=== PATIENT | male | born 1955 | race Caucasian/White ===

== ENCOUNTER 2016-03-20 01:54 | Inpatient (IN) ==
[2016-03-20] MEDS ORDERED: BUMETANIDE 1 MG/4 ML VIAL IV STA (02:16)
--- NOTE | 2016-03-20 02:29 | EKG Report ---
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
--- NOTE | 2016-03-20 02:37 | Emergency Department Note ---
Manuel Clemente Gwan, am scribing for, and in the presence of, Frank Nava MD 02:28. Elijah Clemente Robert M, MD, personally performed the services described in this documentation, ascribed by Shelley Jackson in my presence, and it is both accurate and complete . Arrival - Arrival Chief Complaint: Shortness of Breath Stated Complaint: sob tightness in chest ED Nursing Triage Note: C/O SOB when laying down or with exertion. reports that the last time this happened he was diagnosed with CHF. Mode of Arrival: Wheelchair Limitations: No Limitations Source: Patient, Significant other (), Old Records Reviewed, RN Notes Reviewed Time Seen by Provider: 03/20/16 02:06 - History of Present Illness HPI Narrative: Pt is a 61 y/o male who presents to the ED with a c/o SOB and weakness with an onset today. Pt has a PMHx of HTN, [place], CHF, CAD, stents (1997, 2007,2014), NIDDM , dyslipidemia, obstructive sleep apnea and GERD. noted that pt has had this happen before as a result he was dx wit CHF. Patient confirmed that his discomfort is worsened when he lays flat and with exertion and that he is on prescription water pills. His associated sxs have been edema in bilateral lower extremities and facial edema. Patient is followed by Dr. Rooney and Dr. Mcgee. He denies any other pain or injuries. No other problems/complaints reported in ED. F. Onset (ago): hour(s) Consistency: constant Severity: moderate Allergies/Adverse Reactions: Allergies Allergy/AdvReac Type Severity Reaction Status Date / Time No Known Allergies Allergy Verified 08/17/14 16:09 Home Medications: Home Medications Medication Instructions Recorded Confirmed Type Atorvastatin [Lipitor] 20 mg PO BEDTIME 06/27/14 03/20/16 History Dapagliflozin Propanediol [Farxiga] 1 mg PO DAILY 06/27/14 03/20/16 History Fenofibric Acid 135 mg PO DAILY 06/27/14 03/20/16 History Furosemide Tab [Lasix Tab] 40 mg PO DAILY 06/27/14 03/20/16 History Magnesium Chloride [Mag Delay] 64 mg PO BEDTIME 06/27/14 03/20/16 History Morphine Sulfate [Morphine Sulfate 30 mg PO RT Q12H 06/27/14 03/20/16 History ER] Multivit-Min/FA/Lycopene/Lut 1 each PO DAILY 06/27/14 03/20/16 History [Centrum Silver Tablet] Niacin [Niacin ER] 2,000 mg PO BEDTIME 06/27/14 03/20/16 History Nitroglycerin [place] 400 mcg IH DAILY PRN 06/27/14 03/20/16 History Omeprazole 20 mg PO DAILY 06/27/14 03/20/16 History Potassium Gluconate 595 mg PO DAILY 06/27/14 03/20/16 History Saxagliptin HCl/Metformin HCl 5 mg PO DAILY 06/27/14 03/20/16 History [Kombiglyze Xr 5-1,000 mg Tab] Tizanidine HCl 1 mg PO Q8HR PRN 06/27/14 03/20/16 History Valsartan/Hctz 160-12.5 [Diovan 160 mg PO DAILY 06/27/14 03/20/16 History Hct 160-12.5] Vitamin E 400 unit PO BEDTIME 06/27/14 03/20/16 History glipiZIDE [Glipizide] 5 mg PO DAILY 06/27/14 03/20/16 History Brilinta 90 mg PO BID 07/07/14 03/20/16 History Cilostazol [Pletal] 100 mg PO BID 08/16/14 03/20/16 History Aspirin [Ecotrin] 81 mg PO BEDTIME 08/18/14 03/20/16 History Azelastine Nasal 137 Mcg/[place] 1 spray BOTH NARES BID 07/02/15 03/20/16 History [Astelin Nasal [place]] Baclofen 10 mg PO TID 07/02/15 03/20/16 History Dapagliflozin Propanediol [Farxiga] 5 mg PO DAILY 07/02/15 03/20/16 History Icosapent Ethyl [Vascepa] 2 gm PO BID 07/02/15 03/20/16 History Metoprolol Succinate Xl [Toprol Xl] 50 mg PO DAILY 07/02/15 03/20/16 History Oxycodone HCl/Acetaminophen 1 each PO QID PRN 07/02/15 03/20/16 History [Percocet 10-325 mg Tablet] Pseudoephedrine [Sudafed] 30 mg PO Q4-6H PRN 07/02/15 03/20/16 History Review of System - Review of System 12 point system: reviewed and no additional remarkable complaints except as stated - Review of System Constitutional: Present: as per HPI, weakness Respiratory: Present: as per HPI, other (sob) Medical,Surgical,& Family Hx - Medical History Cardio: History of: CHF, CAD, Hypertension, [place] ([place] x2), PVD, Cardiovascular Problems (Reports 2007 was last stent beginning in 1997; STINTS PLACED 08/16/14) No history of: Aneurysm, Cardiac Dysrhythmia Neurology: No history of: Brain Aneurysm, Cerebral Hemorrhage, Cerebrovascular Accident , Cerebral Palsy, Dementia, Migraine, Multiple Sclerosis, Parkinson's Disease, Peripheral Neuropathy, Seizures, TIA, Vertigo, Neurologocal Cancer Endocrine: History of: Diabetes Mellitus (NIDDM) (type 2. controlled with oral meds), Dyslipidemia Respiratory: History of: Obstructive Sleep Apnea Gastrointestinal: History of: GERD Musculoskeletal: History of: Back/Neck Problems, Herniated Disk (cysts on a disc and L4 and L5 pending surgery), Musculoskeletal Problems (Carpal tunnel surgery) Hematology: No history of: Blood Transfusion Reaction Other: History of: Miscellaneous Medical Problems (history of cyst removed from back of neck in doctor's office) No history of: Cancer, MRSA - Surgical History Cardiac Surgeries: Sugical HX of: Cardiac Catheterization Thoracic Surgeries: Patient denies;: Organ Transplant, Lobectomy Neurologic Surgeries: Patient denies: Brain Aneurysm, Cerebral Hemorrhage, Neurologic Surgery HEENT Surgeries: Patient denies: Eye Surgery, Thyroid Surgery, Tonsilectomy & Adenoidectomy Abdominal Surgeries: Patient denies: Abdominal Surgery, Appendectomy, Cholecystectomy, Colonoscopy , Gastric Bypass Surgery, EGD, Hernia Repair - Family History Family History: Reports;: Family Cancer (FATHER AND GRANDMOTHER), Family Diabetes, Family Heart Disease, Family Hypertension, Family Stroke - Social History Smoking Status: Former smoker Frequency of Alcohol Use: None Type of Drug Use: None Exam Vital Signs: Vital Signs Temperature 97.8 F 03/20/16 02:00 Pulse Rate 70 03/20/16 03:37 Respiratory Rate 20 03/20/16 03:37 Blood Pressure 128/66 03/20/16 03:37 O2 Sat by Pulse Oximetry 98 03/20/16 03:37 - General General appearance: alert - Head Head exam: Present: atraumatic, normocephalic - Eye Eye exam: Present: normal appearance, PERRL, EOMI - ENT ENT exam: Present: normal oropharynx, mucous membranes moist, TM's normal bilaterally, normal external ear exam - Neck Neck exam: Present: full ROM, trachea midline. Absent: tenderness, meningismus , lymphadenopathy, thyromegaly - Chest Chest inspection: Present: symmetric chest wall rise. Absent: tenderness - Respiratory Respiratory exam: Present: rhonchi (bilateral rhonchi) - Abdominal Exam Abdominal exam: Present: soft, normal bowel sounds. Absent: distention, tenderness, guarding - Extremities Exam Extremities exam: Present: other (edema bilateral lower extremities) - Back Exam Back exam: Present: full ROM. Absent: tenderness - Neurological Exam Neurological exam: Present: alert, oriented X3, CN II-XII intact. Absent: motor sensory deficit - Psychiatric Psychiatric exam: Present: normal affect, normal mood - Skin Skin exam: Present: warm, dry, intact, normal color Course - Consultations Consultation #1: Dr. Zeynep Horner is gimp buttonhole machine operator for Dr. Vinicio Rooney. Someone to admit the patient to Dr. Rooney. Dr. Horner is aware. Time: 04:22 Results - Labs CBC & BMP: 03/20/16 02:28 03/20/16 02:28 Lab Results: I have reviewed the patients labs Labs: Lab Results WBC 5.9 T/CUMM (4-12) 03/20/16 02:28 RBC 4.71 MC/CUMM (3.8-5.5) 03/20/16 02:28 Hgb 13.6 GM/DL (14.0-18.0) L 03/20/16 02:28 Hct 41.2 VOL% (42.0-52.0) L 03/20/16 02:28 MCV 87.5 FL (87-102) 03/20/16 02:28 MCH 29 PG (27-34) 03/20/16 02:28 MCHC 33.0 GM/DL (32-36) 03/20/16 02:28 RDW 13.3 % (9.3-17.3) 03/20/16 02:28 Plt Count 283 T/CUMM (130-400) 03/20/16 02:28 MPV 9.1 FL (9.6-12.0) L 03/20/16 02:28 Neut % (Auto) 42.7 % (38.7-73.9) 03/20/16 02:28 Lymph % (Auto) 41.4 % (21.2-54.2) 03/20/16 02:28 [place] % (Auto) 10.4 % (1.7-12.7) 03/20/16 02:28 Eos % (Auto) 3.6 % (0.00-10.9) 03/20/16 02:28 Baso % (Auto) 1.4 % (0.0-0.8) H 03/20/16 02:28 Neut # (Auto) 2.5 10*3/uL (1.4-7.4) 03/20/16 02:28 Lymph # (Auto) 2.4 10*3/uL (1.4-4.0) 03/20/16 02:28 Stevens # (Auto) 0.6 10*3/uL (0.11-0.8) 03/20/16 02:28 Eos # (Auto) 0.2 10*3/uL (0.0-0.87) 03/20/16 02:28 Baso # (Auto) 0.1 10*3/uL (0.0-0.2) 03/20/16 02:28 Immature Gran % 0.5 % 03/20/16 02:28 Nucleated RBC % 0.0 /100WBC 03/20/16 02:28 Immature Gran # 0.03 # 03/20/16 02:28 Nucleated RBCs # 0.00 10*3/uL 03/20/16 02:28 INR 1.0 03/20/16 02:28 PT Patient/Control Mix 10.3 SECS 03/20/16 02:28 Sodium 141 MMOL/L (136-145) 03/20/16 02:28 Potassium 3.7 MMOL/L (3.5-5.1) 03/20/16 02:28 Chloride 104 MMOL/L (98-107) 03/20/16 02:28 Carbon Dioxide 27 MMOL/L (21-32) 03/20/16 02:28 Anion Gap 13.7 MMOL/L (5.0-15.0) 03/20/16 02:28 BUN 20 MG/DL (7-18) H 03/20/16 02:28 Creatinine 1.20 MG/DL (0.70-1.30) 03/20/16 02:28 GFR Calculation 87 ML/MIN 03/20/16 02:28 BUN/Creatinine Ratio 16.00 RATIO (6.00-20.00) 03/20/16 02:28 Glucose 202 MG/DL (74-106) H 03/20/16 02:28 Calculated Osmolality 289.3 MOS/KG (273-304) 03/20/16 02:28 Calcium 9.1 MG/DL (8.5-10.1) 03/20/16 02:28 Magnesium 2.1 MG/DL (1.8-2.4) 03/20/16 02:28 Total Bilirubin < 0.39 MG/DL (0.2-1.0) 03/20/16 02:28 AST 20 U/L (0-37) 03/20/16 02:28 ALT 40 U/L (16-61) 03/20/16 02:28 Alkaline Phosphatase 49 U/L (45-117) 03/20/16 02:28 Troponin I 0.062 NG/ML (0.00-0.045) H 03/20/16 02:28 B-Natriuretic Peptide 4 PG/ML (2-100) 03/20/16 02:28 Total Protein 7.0 G/DL (6.4-8.3) 03/20/16 02:28 Albumin 3.5 G/DL (3.4-5.0) 03/20/16 02:28 Globulin 3.5 G/DL (2.3-3.5) 03/20/16 02:28 Albumin/Globulin Ratio 1.0 RATIO (1.1-2.2) L 03/20/16 02:28 - Diagnostic Findings Procedure: Chest x-ray: image reviewed by me (right lower lobe interstitial prominence) Disposition Clinical Impression: Acute dyspnea, CAD (coronary artery disease), History of placement of stent in LAD coronary artery, Hypertension, Type 2 diabetes mellitus Case discussed with: patient, patient's family Disposition: Still a Patient Condition: Stable Time of Disposition: 04:21
[2016-03-20] MEDS ORDERED: BUMETANIDE 1 MG/4 ML VIAL ONE ×2 (02:38)
[2016-03-20 02:43] LABS: Basophils # 0.1 10*3/uL (0.0-0.2); Basophils % 1.4 % (0.0-0.8); Eosinophils # 0.2 10*3/uL (0.0-0.87); Eosinophils % 3.6 % (0.00-10.9); Hematocrit 41.2 VOL% (42.0-52.0); Hemoglobin 13.6 GM/DL (14.0-18.0); Immature Granulocytes % 0.5 %; Immature Granulocytes Absolute 0.03 #; Lymphocytes # 2.4 10*3/uL (1.4-4.0); Lymphocytes % 41.4 % (21.2-54.2); Mean Corpuscular Hemoglobin 29 PG (27-34); Mean Corpuscular Volume 87.5 FL (87-102); Mean Platelet Volume 9.1 FL (9.6-12.0); Monocytes # 0.6 10*3/uL (0.11-0.8); Monocytes % 10.4 % (1.7-12.7); Neutrophils # 2.5 10*3/uL (1.4-7.4); Neutrophils % 42.7 % (38.7-73.9); Platelet Count 283 T/CUMM (130-400); Red Blood Count 4.71 MC/CUMM (3.8-5.5); Red Cell Distribution Width 13.3 % (9.3-17.3); White Blood Count 5.9 T/CUMM (4-12)
[2016-03-20 02:52] LABS: PT Patient Result 10.3 SECS
[2016-03-20 03:20] LABS: Alanine Aminotransferase 40 U/L (16-61); Albumin 3.5 G/DL (3.4-5.0); Alkaline Phosphatase 49 U/L (45-117); Aspartate Amino Transferase 20 U/L (0-37); Bilirubin,Total < 0.39 MG/DL (0.2-1.0); Blood Urea Nitrogen 20 MG/DL (7-18); Calcium 9.1 MG/DL (8.5-10.1); Glucose 202 MG/DL (74-106); Magnesium 2.1 MG/DL (1.8-2.4); Osmolality,Calculated 289.3 MOS/KG (273-304); Potassium 3.7 MMOL/L (3.5-5.1); Sodium 141 MMOL/L (136-145)
[2016-03-20 03:41] LABS: Troponin I Only 0.062 NG/ML (0.00-0.045)
[2016-03-20] MEDS ORDERED: ALBUTEROL 2.5 MG/3 ML NEB RESP TX STA (03:52)
[2016-03-20] MEDS ORDERED: KETOROLAC 30 MG/1 ML VIAL IV PRN (04:22)
[2016-03-20] MEDS ORDERED: ACETAMINOPHEN 325 MG TABLET PO PRN (04:22)
[2016-03-20] MEDS ORDERED: BISACODYL 5 MG TABLET PO PRN (04:22)
[2016-03-20] MEDS ORDERED: traMADol 50 MG TABLET PO PRN (04:22)
[2016-03-20] MEDS ORDERED: HYDROmorphone 2 MG/1 ML VIAL IV PRN (04:22)
[2016-03-20] MEDS ORDERED: ONDANSETRON 4 MG/2 ML VIAL IV PRN (04:22)
[2016-03-20] MEDS ORDERED: IBUPROFEN 600 MG TABLET PO PRN (04:22)
--- NOTE | 2016-03-20 07:03 | XRay Report ---
XR chest 1V portable Indication: SOB Comparison: Chest x-ray dated August 17, 2014 Technique: Single frontal view of the chest Findings: Heart size appears within normal limits. There is coarse bilateral interstitial lung markings suggesting interstitial pulmonary edema or infectious/inflammatory process. Osseous and surrounding soft tissue structures appear grossly unchanged. IMPRESSION: As above. PROCEDURE INTERPRETED AT [facility] Final Report Signed by: Dr Johan Lee
[2016-03-20] MEDS: cefTRIAXone 1,000 MG in SODIUM CHLORIDE 0.9% 100 ML IV SCH (07:05)
[2016-03-20] MEDS ORDERED: NITROGLYCERIN 400 MCG IH PRN (07:19)
[2016-03-20] MEDS ORDERED: oxyCODONE/ACETAMINOPHEN 5-325 MG TABLET PO PRN ×2 (07:19→07:26)
[2016-03-20] MEDS ORDERED: GLUCAGON 1 MG VIAL IM PRN ×2 (07:24→07:28)
[2016-03-20] MEDS ORDERED: DEXTROSE 50% 25 GM/50 ML VIAL IV PRN ×2 (07:24→07:28)
[2016-03-20] MEDS: INSULIN LISPRO 100 UNIT/ML SUBCUT SCH ×4 (08:36→21:46)
[2016-03-20] MEDS ORDERED: NON-FORMULARY MEDICATION (Dapagliflozin Propanediol [Farxiga] 10 MG) PO SCH (09:00)
[2016-03-20] MEDS: FUROSEMIDE 40 MG TABLET PO SCH (09:26)
[2016-03-20] MEDS: glipiZIDE 5 MG TABLET PO SCH (09:26)
[2016-03-20] MEDS: FENOFIBRATE 145 MG TABLET PO SCH (09:26)
[2016-03-20] MEDS: POTASSIUM GLUCONATE 500 MG TABLET PO SCH (09:26)
[2016-03-20] MEDS: MULTIVITAMIN (CENTRUM) TABLET PO SCH (09:26)
[2016-03-20] MEDS: VALSARTAN/HCTZ 160-12.5 MG TABLET PO SCH (09:26)
[2016-03-20] MEDS: DOCUSATE SODIUM 100 MG CAPSULE PO SCH ×2 (09:26→21:26)
[2016-03-20] MEDS: PANTOPRAZOLE 40 MG TABLET PO SCH (09:26)
[2016-03-20] MEDS: sitaGLIPtin 100 MG TABLET PO SCH (09:26)
[2016-03-20] MEDS: TICAGRELOR 90 MG TABLET PO SCH ×2 (09:26→21:26)
[2016-03-20] MEDS: AZELASTINE NASAL 137 MCG/SPRAY 30 ML BOTTLE BOTH NARES SCH ×2 (09:27→21:31)
--- NOTE | 2016-03-20 09:43 | Family Practice History&Phys ---
Assessment and Plan (1) Dyspnea on exertion Status: Acute Assessment and plan: I'm admitting the patient we will continue his sleep BiPAP machine. We'll get pulmonary to see him. Some of this may have to do with the numerous pain medications requiring Current Visit: Yes (2) Acute dyspnea Status: Acute Current Visit: Yes (3) CAD (coronary artery disease) Status: Chronic Assessment and plan: With his strong history in that he get cardiology consultation do appreciate their assistance in this considering he may have congestive heart failure Current Visit: Yes (4) Type 2 diabetes mellitus Status: Chronic Assessment and plan: We'll monitor closely his blood sugars and adjust accordingly Current Visit: Yes (5) Chronic low back pain Status: Chronic Current Visit: No (6) Metabolic syndrome Status: Chronic Current Visit: No (7) Peripheral vascular disease due to secondary diabetes Status: Chronic Current Visit: No History of Present Illness Chief complaint: shortness of breath, chest pressure. No energy History of present illness: Mr. Bradford is a 61 year old male Well-known to me who came into the emergency room last night after having 5 days of "not feeling well". He's had a lot of decreased energy, is sleeping a lot and getting short of breath with any exertion. He is on multiple medications including medications for pain in his back. He has a history of hypercholesterolemia, coronary artery disease, brittle diabetes, congestive heart failure, peripheral vascular disease, occasional allergies, and chronic back pain, and obstructive sleep apnea as well as GERD.. Patient's is very concerned that he may be in congestive heart failure but his BNP was only 4. CBC was normal. Chemistry was normal except slight elevation of glucose and only 0.062 on troponin. At this time because of his history and his symptoms I'm going to admit him get pulmonary consult on him because his chest x -ray did reveal some questionable interstitial pulmonary edema with with possible inflammatory/infectious process. I'm going to get cardiology consult on him due to his long-standing cardiac history. Home Medications Medication Instructions Recorded Confirmed Type Atorvastatin [Lipitor] 20 mg PO BEDTIME 06/27/14 03/20/16 History Dapagliflozin Propanediol [Farxiga] 1 mg PO DAILY 06/27/14 03/20/16 History Fenofibric Acid 135 mg PO DAILY 06/27/14 03/20/16 History Furosemide Tab [Lasix Tab] 40 mg PO DAILY 06/27/14 03/20/16 History Magnesium Chloride [Mag Delay] 64 mg PO BEDTIME 06/27/14 03/20/16 History Morphine Sulfate [Morphine Sulfate 30 mg PO RT Q12H 06/27/14 03/20/16 History ER] Multivit-Min/FA/Lycopene/Lut 1 each PO DAILY 06/27/14 03/20/16 History [Centrum Silver Tablet] Niacin [Niacin ER] 2,000 mg PO BEDTIME 06/27/14 03/20/16 History Nitroglycerin [place] 400 mcg IH DAILY PRN 06/27/14 03/20/16 History Omeprazole 20 mg PO DAILY 06/27/14 03/20/16 History Potassium Gluconate 595 mg PO DAILY 06/27/14 03/20/16 History Saxagliptin HCl/Metformin HCl 5 mg PO DAILY 06/27/14 03/20/16 History [Kombiglyze Xr 5-1,000 mg Tab] Tizanidine HCl 1 mg PO Q8HR PRN 06/27/14 03/20/16 History Valsartan/Hctz 160-12.5 [Diovan 160 mg PO DAILY 06/27/14 03/20/16 History Hct 160-12.5] Vitamin E 400 unit PO BEDTIME 06/27/14 03/20/16 History glipiZIDE [Glipizide] 5 mg PO DAILY 06/27/14 03/20/16 History Brilinta 90 mg PO BID 07/07/14 03/20/16 History Cilostazol [Pletal] 100 mg PO BID 08/16/14 03/20/16 History Aspirin [Ecotrin] 81 mg PO BEDTIME 08/18/14 03/20/16 History Azelastine Nasal 137 Mcg/[place] 1 spray BOTH NARES BID 07/02/15 03/20/16 History [Astelin Nasal [place]] Baclofen 10 mg PO TID 07/02/15 03/20/16 History Dapagliflozin Propanediol [Farxiga] 5 mg PO DAILY 07/02/15 03/20/16 History Icosapent Ethyl [Vascepa] 2 gm PO BID 07/02/15 03/20/16 History Metoprolol Succinate Xl [Toprol Xl] 50 mg PO DAILY 07/02/15 03/20/16 History Oxycodone HCl/Acetaminophen 1 each PO QID PRN 07/02/15 03/20/16 History [Percocet 10-325 mg Tablet] Pseudoephedrine [Sudafed] 30 mg PO Q4-6H PRN 07/02/15 03/20/16 History Allergies Allergy/AdvReac Type Severity Reaction Status Date / Time No Known Allergies Allergy Verified 08/17/14 16:09 12 point system: reviewed and no additional remarkable complaints except as stated (except those mentioned in the history and physical, and exam) Medical,Surgical,& Family Hx - Medical History Cardio: History of: CHF, CAD, Hypertension, [place] ([place] x2), PVD, Cardiovascular Problems (Reports 2007 was last stent beginning in 1997; STINTS PLACED 08/16/14) No history of: Aneurysm, Cardiac Dysrhythmia Neurology: No history of: Brain Aneurysm, Cerebral Hemorrhage, Cerebrovascular Accident , Cerebral Palsy, Dementia, Migraine, Multiple Sclerosis, Parkinson's Disease, Peripheral Neuropathy, Seizures, TIA, Vertigo, Neurologocal Cancer Endocrine: History of: Diabetes Mellitus (NIDDM) (type 2. controlled with oral meds), Dyslipidemia Respiratory: History of: Obstructive Sleep Apnea (uses cpap) Gastrointestinal: History of: GERD Musculoskeletal: History of: Back/Neck Problems, Herniated Disk (cysts on a disc and L4 and L5 pending surgery), Musculoskeletal Problems (Carpal tunnel surgery, has 2 stents in each leg) Hematology: No history of: Blood Transfusion Reaction Other: History of: Miscellaneous Medical Problems (history of cyst removed from back of neck in doctor's office) No history of: Cancer, MRSA - Surgical History Cardiac Surgeries: Sugical HX of: Cardiac Catheterization Thoracic Surgeries: Patient denies;: Organ Transplant, Lobectomy Neurologic Surgeries: Patient denies: Brain Aneurysm, Cerebral Hemorrhage, Neurologic Surgery HEENT Surgeries: Patient denies: Eye Surgery, Thyroid Surgery, Tonsilectomy & Adenoidectomy Abdominal Surgeries: Patient denies: Abdominal Surgery, Appendectomy, Cholecystectomy, Colonoscopy , Gastric Bypass Surgery, EGD, Hernia Repair - Family History Family History: Reports;: Family Cancer (FATHER AND GRANDMOTHER), Family Diabetes, Family Heart Disease, Family Hypertension, Family Stroke - Social History Smoking Status: Former smoker Frequency of Alcohol Use: None Type of Drug Use: None Exam - Constitutional Vitals: Period Temp Pulse Resp BP Sys/Baldwin Pulse Ox Last 24 Hr 97.9 F 71-79 12-20 101-113/48-58 93-95 Exam: Well-developed male he does have metabolic syndrome picture. He does seem to be a little fatigued HEENT pupils equal reactive to light. Ocular movements intact neck supple trachea midline Lungs a few basilar rails no rhonchi appreciated. Cardiovascular rate is regular no gallop or rub one out of 6 systolic ejection murmur Abdomen soft nondistended nontender admits normal bowel movements Extremities no clubbing cyanosis or edema Neurologically no lateralizing signs or focal neurologic deficit Results - Labs CBC & BMP: 03/20/16 02:28 03/20/16 02:28
--- NOTE | 2016-03-20 10:47 | Pulmonology Consult Note ---
History of Present Illness Chief complaint: Orthopnea. Short of breath. Right lower lung pneumonia. History of present illness: Mr. Bradford is a 61 year old white male whom I have been asked to see in pulmonary consultation. This patient is usually followed by Dr. Shar Rooney and Dr. Aron che. This patient was admitted to the emergency room. He had not been feeling well. He had developed some progressive shortness of breath and a mild cough very little sputum production. He developed orthopnea. He had heart failure in the past and his says this is just what he was when he had congestive heart failure. He was brought to the emergency room and evaluated and subsequently admitted. Note that his BNP was 4. Patient denies hemoptysis. He also denies microaspiration. He is a little vague on the chest pain. The remainder review of systems is noncontributory. Allergies. None Home medicines. See below Past history. Heart disease. Past history of MN 2. Coronary artery stents. Past history of heart failure. High blood pressure. Mal-dbwmsat-qoskegnrt diabetes mellitus. Hyperlipidemia. Obstructive sleep apnea. History of gastroesophageal reflux disease. Chronic sinusitis. Chronic anticoagulation. Peripheral artery disease with stents in both legs. Chronic neck and low back pain. Social history. Past history of smoking. Denies alcohol. . Family history. His father and grandmother had unknown cancers. Strong family history of diabetes heart disease high blood pressure stroke. Chest x-ray. My interpretation. Increased markings at the right base that look like early pneumonia. There is also faint increased markings at the left base which are not as prominent as those seen on the right. This could also be an early infiltrate. I do not see any heart failure. There are no masses. Lab. Natruretic peptide is 4. Troponins are 0.062. Electrolytes are normal. Creatinine is 1.2. BUN is 20. Glucose is 202. Liver function tests are normal. Protein and albumin and globulin are normal. CBC is normal. White blood cell count is 5900 with 43 segs 41 lymphs 10 monos. Microbiology. No reports. Physical exam. Vital signs. See below. No fever Eyes appear to be normal. Face is symmetrical. Salivary glands are normal. Lips and tongue are normal. Neck is symmetrical with no meningismus. No masses. Thyroid was not palpated. Lymphatics. No submandibular cervical supraclavicular or epitrochlear adenopathy. Chest. Mild prolongation of expiration. No significant large airway congestion. No wheeze. No chest wall tenderness. Heart. No gallop. Abdomen. Nontender. Positive bowel sounds. No organs were palpated. and rectal deferred Extremities trace of pretibial and pedal edema. Neurologic. Cranial nerves are intact with decreased hearing acuity. Patient moves all 4 extremities. I did not check his gait or sensory exam. Musculoskeletal. Age-appropriate loss normal curvature of the cervical thoracic and lumbar spine The remainder of the physical exam is noncontributory. Impression. 1. Congestive heart failure is suspected. Do not think his x-rays show that. 2. Bibasilar increase in pulmonary markings. Greater on the right than the left. Possible early pneumonia. No white count is normal. 3. COPD 4. History of gastroesophageal reflux disease. Watch for microaspiration. 5. Xsz-jcnrwzd-ctqhlckfs diabetes mellitus. 6. See past history Plan. 1. Cold agglutinins 2. Legionella titer 3. Sputum for Gram stain culture and sensitivity 4. Levaquin 5. Zithromax 6. Follow-up chest x-rays. Home Medications Medication Instructions Recorded Confirmed Type Atorvastatin [Lipitor] 20 mg PO BEDTIME 06/27/14 03/20/16 History Dapagliflozin Propanediol [Farxiga] 1 mg PO DAILY 06/27/14 03/20/16 History Fenofibric Acid 135 mg PO DAILY 06/27/14 03/20/16 History Furosemide Tab [Lasix Tab] 40 mg PO DAILY 06/27/14 03/20/16 History Magnesium Chloride [Mag Delay] 64 mg PO BEDTIME 06/27/14 03/20/16 History Morphine Sulfate [Morphine Sulfate 30 mg PO RT Q12H 06/27/14 03/20/16 History ER] Multivit-Min/FA/Lycopene/Lut 1 each PO DAILY 06/27/14 03/20/16 History [Centrum Silver Tablet] Niacin [Niacin ER] 2,000 mg PO BEDTIME 06/27/14 03/20/16 History Nitroglycerin [place] 400 mcg IH DAILY PRN 06/27/14 03/20/16 History Omeprazole 20 mg PO DAILY 06/27/14 03/20/16 History Potassium Gluconate 595 mg PO DAILY 06/27/14 03/20/16 History Saxagliptin HCl/Metformin HCl 5 mg PO DAILY 06/27/14 03/20/16 History [Kombiglyze Xr 5-1,000 mg Tab] Tizanidine HCl 1 mg PO Q8HR PRN 06/27/14 03/20/16 History Valsartan/Hctz 160-12.5 [Diovan 160 mg PO DAILY 06/27/14 03/20/16 History Hct 160-12.5] Vitamin E 400 unit PO BEDTIME 06/27/14 03/20/16 History glipiZIDE [Glipizide] 5 mg PO DAILY 06/27/14 03/20/16 History Brilinta 90 mg PO BID 07/07/14 03/20/16 History Cilostazol [Pletal] 100 mg PO BID 08/16/14 03/20/16 History Aspirin [Ecotrin] 81 mg PO BEDTIME 08/18/14 03/20/16 History Azelastine Nasal 137 Mcg/[place] 1 spray BOTH NARES BID 07/02/15 03/20/16 History [Astelin Nasal [place]] Baclofen 10 mg PO TID 07/02/15 03/20/16 History Dapagliflozin Propanediol [Farxiga] 5 mg PO DAILY 07/02/15 03/20/16 History Icosapent Ethyl [Vascepa] 2 gm PO BID 07/02/15 03/20/16 History Metoprolol Succinate Xl [Toprol Xl] 50 mg PO DAILY 07/02/15 03/20/16 History Oxycodone HCl/Acetaminophen 1 each PO QID PRN 07/02/15 03/20/16 History [Percocet 10-325 mg Tablet] Pseudoephedrine [Sudafed] 30 mg PO Q4-6H PRN 07/02/15 03/20/16 History Allergies Allergy/AdvReac Type Severity Reaction Status Date / Time No Known Allergies Allergy Verified 08/17/14 16:09 Exam (Pulmon) H&P - Constitutional Vitals: Period Temp Pulse Resp BP Sys/Baldwin Pulse Ox Last 24 Hr 97.9 F-97.9 F 71-79 12-20 101-113/48-60 93-97 Medical,Surgical,& Family Hx - Medical History Cardio: History of: CHF, CAD, Hypertension, MN (MN x2), PVD, Cardiovascular Problems (Reports 2007 was last stent beginning in 1997; STINTS PLACED 08/16/14) No history of: Aneurysm, Cardiac Dysrhythmia Neurology: No history of: Brain Aneurysm, Cerebral Hemorrhage, Cerebrovascular Accident , Cerebral Palsy, Dementia, Migraine, Multiple Sclerosis, Parkinson's Disease, Peripheral Neuropathy, Seizures, TIA, Vertigo, Neurologocal Cancer Endocrine: History of: Diabetes Mellitus (NIDDM) (type 2. controlled with oral meds), Dyslipidemia Respiratory: History of: Obstructive Sleep Apnea (uses cpap) Gastrointestinal: History of: GERD Musculoskeletal: History of: Back/Neck Problems, Herniated Disk (cysts on a disc and L4 and L5 pending surgery), Musculoskeletal Problems (Carpal tunnel surgery, has 2 stents in each leg) Hematology: No history of: Blood Transfusion Reaction Other: History of: Miscellaneous Medical Problems (history of cyst removed from back of neck in doctor's office) No history of: Cancer, MRSA - Surgical History Cardiac Surgeries: Sugical HX of: Cardiac Catheterization Thoracic Surgeries: Patient denies;: Organ Transplant, Lobectomy Neurologic Surgeries: Patient denies: Brain Aneurysm, Cerebral Hemorrhage, Neurologic Surgery HEENT Surgeries: Patient denies: Eye Surgery, Thyroid Surgery, Tonsilectomy & Adenoidectomy Abdominal Surgeries: Patient denies: Abdominal Surgery, Appendectomy, Cholecystectomy, Colonoscopy , Gastric Bypass Surgery, EGD, Hernia Repair - Family History Family History: Reports;: Family Cancer (FATHER AND GRANDMOTHER), Family Diabetes, Family Heart Disease, Family Hypertension, Family Stroke - Social History Smoking Status: Former smoker Frequency of Alcohol Use: None Type of Drug Use: None Results - Labs CBC & BMP: 03/20/16 02:28 03/20/16 02:28
[2016-03-20] MEDS: AZITHROMYCIN INJ 500 MG in SODIUM CHLORIDE 0.9% 250 ML IV SCH (12:51)
--- NOTE | 2016-03-20 18:02 | Cardiology Consult Note ---
Chyna, Shanae Nuñez RN, am scribing for, and in the presence of, Matthew Al MD 17:56. Assessment and Plan - Time spent with patient Time spent with patient: Greater than 30 minutes (due to assessment, planning, documentation) (1) Dyspnea on exertion Status: Acute Assessment and plan: Etiology of this is really not clear. He's had some this now for a little while. Echo really doesn't demonstrate anything Schoemaker in the short of breath. Certainly his chest x-ray is slightly abnormal and could he have some interstitial edema. The other issue though is that his echo doesn't show any specific pathology to account for this and his BNP is 4. He's had no worsening edema of this findings for heart failure. Would probably recommend at this time to continue his low-dose furosemide. He can follow with Dr. che in 1- 2 weeks. He has previously had poor exercise or physical capacity. Current Visit: Yes (2) Chest tightness or pressure Status: Acute Assessment and plan: Rule out was not able to obtain a history of this. He's not had any recent problems. Current Visit: Yes (3) CAD (coronary artery disease) Status: Chronic Assessment and plan: This clinically seems to be stable at this time. Current Visit: Yes (4) Hypertension Status: Chronic Assessment and plan: Blood pressures appear to be well controlled. Continue current medication regimen. Current Visit: Yes (5) Type 2 diabetes mellitus Status: Chronic Assessment and plan: Glucose fairly well controlled. Defer management to attending physician. Current Visit: Yes (6) Obstructive sleep apnea on CPAP Status: Chronic Assessment and plan: He is compliant with use of CPAP. Reinforced importance of usage. Current Visit: No (7) Peripheral vascular disease due to secondary diabetes Status: Chronic Assessment and plan: He is s/p angioplasty of right common femoral artery and stenting of right proximal superficial femoral artery in June 2015. Pletal has been continued. Current Visit: No (8) Hyperlipidemia Status: Chronic Assessment and plan: Continue his statin drug. Current Visit: No (9) Chronic low back pain Status: Chronic Assessment and plan: Pain medications have been resumed. He is managed for his pain by Dr. Avalos. Current Visit: No History of Present Illness - Data of Consult Patient: known to practice within the last 3 years Consult date: 03/20/16 Requesting Physician: Vinicio Rooney - Consult Narrative Reason for consult: chest pain History of present illness: Mr. Bradford is a 61 year old white male routinely followed by Dr. Aron Mcgee in clinic. Risk factors for heart disease include diabetes, hypertension, dyslipidemia, former smoking, family history, personal history. Known CAD with VT in the remote past, multiple coronary stent placement with most recent being June 2014 when he had PCI of proximal LAD and proximal Cx with drug eluting stents. Other PMHx includes PAD with claudication (stenting of bilateral SFA's by Dr. Fischer), congestive heart failure, obstructive sleep apnea with CPAP use, chronic back pain, degenerative disk disease. He is now admitted with shortness of breath at rest and with exertion for approximately 4-5 days and chest tightness. Chest x-ray questionable for pulmonary fluid. Troponin level 0.0.062 noted. BNP was 4. His echocardiogram revealed normal left ventricular function and concentric left ventricular hypertrophy. Valve structures were unremarkable. There was no acute or abnormal pathology to account for any symptomatology. With these findings and cardiac history, we have been consulted to see and evaluate. Further workup has included 12 lead EKG which revealed sinus rhythm with some non specific t-wave changes, but no acute ST segment elevation. Last seen in clinic on February 27 for routine follow up. Per note, had dyspnea on exertion and edema of extremities. Low cholesterol, no added salt, diabetic diet reinforced. No medications changes. He had no complaint of orthopnea, PND, palpitation, presyncope, or chest pain. Most recent Cardiolite stress test in September 2015 was normal with ejection fraction 64% and poor work capacity noted. Patient interviewed and examined. is present at bedside. Patient in no apparent distress at time. He is not requiring oxygen, and head of bed is elevated approximately 15 degrees. Reports he feels much better after receiving IV Bumex and nebulizer treatment while in ER overnight, and says he has had frequent voids. He does report feeling some mild dyspnea at rest saying it is "just hard to get a good breath in" and especially with ambulation, and he tells me if he were to walk from hospital bed to room door, he would be "completely give out." is very concerned that he is having a heart related issue right now because patient has been "grouchy" since this past weekend, and "not himself." Also says the last few days, he has been suddenly awakening and having to sit up to breathe properly. He is very compliant with his CPAP. Admits chest tightness across entire upper chest, nonradiating, describes as a burning sensation. Says these complaints are different than symptoms he has had in past prior to coronary stenting. Skin is warm and dry. No current dyspnea or chest discomfort. Admits nonproductive, occasional cough with clear sputum production. No recent fever or chills. Afebrile, blood pressure 113/58, heart rate 80's and regular. Home medications continued since admission include Pletal, baby asa, Brilinta, Toprol XL, Lipitor, Lasix, Diovan, Tricor. Labs reviewed: CTNI as above, WBC 5.9, H/H 13.6 & 41.2, sodium 141, potassium 3.7, creatinine 1.2, glucose 147, BNP is 4. CC: Vinicio Rooney, DO - Home Medications and Allergies Home Medications: Home Medications Medication Instructions Recorded Confirmed Type Atorvastatin [Lipitor] 20 mg PO BEDTIME 06/27/14 03/20/16 History Dapagliflozin Propanediol [Farxiga] 1 mg PO DAILY 06/27/14 03/20/16 History Fenofibric Acid 135 mg PO DAILY 06/27/14 03/20/16 History Furosemide Tab [Lasix Tab] 40 mg PO DAILY 06/27/14 03/20/16 History Magnesium Chloride [Mag Delay] 64 mg PO BEDTIME 06/27/14 03/20/16 History Morphine Sulfate [Morphine Sulfate 30 mg PO RT Q12H 06/27/14 03/20/16 History ER] Multivit-Min/FA/Lycopene/Lut 1 each PO DAILY 06/27/14 03/20/16 History [Centrum Silver Tablet] Niacin [Niacin ER] 2,000 mg PO BEDTIME 06/27/14 03/20/16 History Nitroglycerin [place] 400 mcg IH DAILY PRN 06/27/14 03/20/16 History Omeprazole 20 mg PO DAILY 06/27/14 03/20/16 History Potassium Gluconate 595 mg PO DAILY 06/27/14 03/20/16 History Saxagliptin HCl/Metformin HCl 5 mg PO DAILY 06/27/14 03/20/16 History [Kombiglyze Xr 5-1,000 mg Tab] Tizanidine HCl 1 mg PO Q8HR PRN 06/27/14 03/20/16 History Valsartan/Hctz 160-12.5 [Diovan 160 mg PO DAILY 06/27/14 03/20/16 History Hct 160-12.5] Vitamin E 400 unit PO BEDTIME 06/27/14 03/20/16 History glipiZIDE [Glipizide] 5 mg PO DAILY 06/27/14 03/20/16 History Brilinta 90 mg PO BID 07/07/14 03/20/16 History Cilostazol [Pletal] 100 mg PO BID 08/16/14 03/20/16 History Aspirin [Ecotrin] 81 mg PO BEDTIME 08/18/14 03/20/16 History Azelastine Nasal 137 Mcg/[place] 1 spray BOTH NARES BID 07/02/15 03/20/16 History [Astelin Nasal [place]] Baclofen 10 mg PO TID 07/02/15 03/20/16 History Dapagliflozin Propanediol [Farxiga] 5 mg PO DAILY 07/02/15 03/20/16 History Icosapent Ethyl [Vascepa] 2 gm PO BID 07/02/15 03/20/16 History Metoprolol Succinate Xl [Toprol Xl] 50 mg PO DAILY 07/02/15 03/20/16 History Oxycodone HCl/Acetaminophen 1 each PO QID PRN 07/02/15 03/20/16 History [Percocet 10-325 mg Tablet] Pseudoephedrine [Sudafed] 30 mg PO Q4-6H PRN 07/02/15 03/20/16 History Allergies/Adverse Reactions: Allergies Allergy/AdvReac Type Severity Reaction Status Date / Time No Known Allergies Allergy Verified 08/17/14 16:09 - Constitutional Constitutional: Present: fatigue. Absent: chills, excessive sweating, fever(s) , frequent falls, night sweats, weakness, weight gain, weight loss - EENT Eyes: Absent: blurry vision, diplopia Ears: Absent: decreased hearing, ear discharge Nose, mouth and throat: Absent: dysphagia, epistaxis, headache(s), lip swelling , neck pain, sinus pressure, sore throat, throat swelling, tongue swelling, vertigo - Cardiovascular Cardiovascular: Present: chest pain at rest, chest pain with activity, claudication, dyspnea, dyspnea on exertion, orthopnea, PND. Absent: edema, lightheadedness, palpitations - Respiratory Respiratory: Present: cough, dyspnea, dyspnea on exertion. Absent: hemoptysis, wheezing, change in phlegm color - Gastrointestinal Gastrointestinal: Absent: abdominal pain, constipation, diarrhea, dysphagia, heartburn, melena, nausea, vomiting, jaundice - Genitourinary Genitourinary: Absent: difficulty urinating, flank pain, hematuria, nocturia, urinary frequency - Musculoskeletal Musculoskeletal: Present: back pain. Absent: joint swelling - Neurological Neurological: Present: abnormal gait (slow but deliberate). Absent: confusion, dizziness, frequent falls, headache(s), radicular pain, syncope, tremor(s) - Psychiatric Psychiatric: Absent: anxiety, depression - Endocrine Endocrine: Absent: cold intolerance, heat intolerance - Hematologic/Lymphatic Hematologic/Lymphatic: Absent: easy bleeding, easy bruising Medical,Surgical,& Family Hx - Medical History Cardio: History of: CHF, CAD, Hypertension, VT, PVD (with claudication; ), Cardiovascular Problems (Reports 2007 was last stent beginning in 1997; STINTS PLACED 08/16/14) No history of: Aneurysm, Cardiac Dysrhythmia Neurology: No history of: Brain Aneurysm, Cerebral Hemorrhage, Cerebrovascular Accident , Cerebral Palsy, Dementia, Migraine, Multiple Sclerosis, Parkinson's Disease, Peripheral Neuropathy, Seizures, TIA, Vertigo, Neurologocal Cancer Endocrine: History of: Diabetes Mellitus (NIDDM) (type 2. controlled with oral meds), Dyslipidemia Respiratory: History of: Obstructive Sleep Apnea (uses cpap) No history of: Asthma, Intubation, Pulmonary Hypertension Renal: No history of: Renal Failure Genitourinary: No history of: Recurring Urinary Tract Infections Gastrointestinal: History of: GERD No history of: Bowel Obstruction, Hematochezia, Hepatitis Musculoskeletal: History of: Back/Neck Problems, Degenerative Disk Disease ( lumbar, multilevel; managed by Dr. Avalos), Herniated Disk (cysts on a disc and L4 and L5 pending surgery), Musculoskeletal Problems (chronic low back pain) Hematology: No history of: Anemia, Blood Transfusion Reaction Other: History of: Miscellaneous Medical Problems (history of cyst removed from back of neck in doctor's office) No history of: Cancer, MRSA - Surgical History Cardiac Surgeries: Sugical HX of: Cardiac Catheterization Thoracic Surgeries: Patient denies;: Organ Transplant, Lobectomy Neurologic Surgeries: Patient denies: Brain Aneurysm, Cerebral Hemorrhage, Neurologic Surgery HEENT Surgeries: Patient denies: Eye Surgery, Thyroid Surgery, Tonsilectomy & Adenoidectomy Abdominal Surgeries: Patient denies: Abdominal Surgery, Appendectomy, Cholecystectomy, Colonoscopy , Gastric Bypass Surgery, EGD, Hernia Repair Additional Surgical History: carpal tunnel sx - Family History Family History: Reports;: Family Cancer (FATHER AND GRANDMOTHER), Family Diabetes (father), Family Heart Disease (father), Family Hypertension (mother), Family Stroke (father) - Social History Smoking Status: Former smoker Frequency of Alcohol Use: None Type of Drug Use: None Marital Status: Lives With:: Spouse Functional capacity: independent ambulation Physical Examination Vital Signs Temp Pulse Resp BP Pulse Ox 97.8 F 82 18 105/74 96 03/20/16 02:00 03/20/16 02:00 03/20/16 02:00 03/20/16 02:00 03/20/16 02:00 General: Present: No Apparent Distress HEENT: Present: PERRL, Mucus Membranes Moist. Absent: Jaundice, Pallor Neck: Present: Supple Neck, Midline Trachea. Absent: No JVD/HJR, No Masses, No Bruit Cardiac: Present: Reg Rate and Rhythm. Absent: No Murmur, Tachycardia, Bradycardia Lungs: Present: Clear Ascult./Percussion, No Wheeze, Rales, Rhonchi. Absent: Oxygen Neuro: Present: Grossly Intact. Absent: Numbness, Tingling, Weakness, Resting Tremor Abdomen: Present: Soft, Active Bowel Sounds. Absent: Ascites, Tender, Firm Skin: Present: Other (discolored lower legs and toes, related to peripheral disease). Absent: Rash Musculoskeletal: Absent: No Fluid Collection, Normal Range of Motion Extremities: Present: No Clubbing, No Cyanosis, No Edema, Normal Upper Extr. Pulses (2+), Normal Lower Extr. Pulses (2+ posterior tibial, 1+ dorsalis pedis) , Capillary Refill (normal). Absent: Cold, Mottled Result/EKG - Labs CBC & BMP: 03/20/16 02:28 03/20/16 02:28 Lab Results: I have reviewed the past 24 hour labs Labs: Laboratory Results - last 24 hr 03/20/16 07:03 POC Glucose 147 H - Impressions Impressions: ECG with sinus rhythm with low-voltage QRS complexes but certainly no acute ischemic changes. Echocardiogram with left ventricle pertinent normal left ventricular function and other chambers are all normal. Valves unremarkable. Certainly his chest x-ray some interstitial changes. This may be some fluid. - Diagnostic Findings Procedure: Chest x-ray: report reviewed by me, image reviewed by me - EKG EKG results: interpreted by me, no acute changes EKG shows: sinus rhythm IServando John Timothy, MD, personally performed the services described in this documentation, ascribed by Shanae Nuñez RN in my presence, and it is both accurate and complete 802 .
[2016-03-20] MEDS ORDERED: ATORVASTATIN 20 MG TABLET PO SCH (21:00)
[2016-03-20] MEDS: BACLOFEN 10 MG TABLET PO SCH (21:26)
[2016-03-20] MEDS: MORPHINE ER 15 MG TABLET PO SCH (21:26)
[2016-03-20] MEDS: ASPIRIN EC 81 MG TABLET PO SCH (21:26)
[2016-03-20] MEDS: MAGNESIUM CHLORIDE 64 MG TABLET PO SCH (21:26)
[2016-03-21] MEDS: cefTRIAXone 1,000 MG in SODIUM CHLORIDE 0.9% 100 ML IV SCH (04:49)
[2016-03-21] MEDS: MORPHINE ER 15 MG TABLET PO SCH (07:49)
--- NOTE | 2016-03-21 08:11 | ECHO Report ---
Moreno Bradford Exam Date: 03/20/2016 15:34 Referring Physician: Technologist: Sherry Obando RDCS Age: 61 Ht (in): Wt (lb): Gender: M Exam Location: [facility] Echo Indications: Chest pain, unspecified, Dyspnea, unspecified, Orthopnea, CAD with previous stents, NIDDM, Metabolic syndrome, Peripheral vascular disease, unspecified, [place], Chronic fatigue, unspecified, Essential (primary) hypertension, Hyperlipidemia, unspecified, Right lower lobe pneumonia BP: / HR: Rhythm: Sinus Technical Quality: Fair IMPRESSIONS 1. Left ventricle is normal size with mild concentric left ventricle hypertrophy and no sore motion amount is. Ejection fraction is 55+ percent. 2. Left atrium at worst is mildly dilated. 3. Right-sided chambers are normal size. 4. Valvular structures are grossly normal without any significant Doppler abnormalities. MEASUREMENTS (Male / Female) Normal Values 2D ECHO LV Diastolic Diameter PLAX 4.2 cm 4.2 - 5.9 / 3.9 - 5.3 cm LV Systolic Diameter PLAX 3.1 cm LV Fractional Shortening PLAX 27.1 % IVS Diastolic Thickness 1.1 cm 0.6 - 1.0 / 0.6 - 0.9 cm LVPW Diastolic Thickness 1.1 cm 0.6 - 1.0 / 0.6 - 0.9 cm RV Internal Dim ED PLAX 2.5 cm Aortic Root Diameter 3.3 cm LA Systolic Diameter LX 4.5 cm 3.0 - 4.0 / 2.7 - 3.8 cm FINDINGS Left Ventricle Normal left ventricular cavity size. Mild left ventricular hypertrophy. Left ventricular ejection fraction is estimated at 55 %. Right Ventricle The right ventricle is normal in size and function. Right Atrium The right atrium is normal size. Left Atrium The left atrium is mildly enlarged at worst. Mitral Valve Morphologically normal mitral valve without significant stenosis or prolapse. There is no mitral regurgitation. Aortic Valve Morphologically normal aortic valve that is tricuspid without significant sclerosis or stenosis. There is no aortic regurgitation. Tricuspid Valve Morphologically normal tricuspid valve without significant stenosis or regurgitation. Pulmonary artery systolic pressure is normal. Pulmonic Valve Morphologically normal pulmonic valve without significant stenosis. There is no pulmonic regurgitation. Pericardium Normal pericardium without effusion. Aorta Normal ascending aorta dimension. Matthew Al MD (Electronically Signed) Final Date: 20 March 2016 17:46
--- NOTE | 2016-03-21 08:23 | XRay Report ---
XR chest 2V Indication: COPD Comparison: Chest x-ray dated March 20, 2016 Technique: Frontal and lateral views of the chest Findings: Cardiac mediastinal silhouette is stable configuration. Chronic changes in the lungs without focal consolidation, pleural effusion, or pneumothorax. Osseous and surrounding soft tissue structures appear grossly unchanged. IMPRESSION: No acute cardiopulmonary process demonstrated. PROCEDURE INTERPRETED AT [facility] DEPARTMENT OF RADIOLOGY Final Report Signed by: Dr Johan Lee
--- NOTE | 2016-03-21 09:36 | Physician Query Form ---
CLICK EDIT DOCUMENT TO SELECT QUERY ANSWER --> OK --> SIGN Otilia Sterling RN Clinical Emergency Medical Technician Basic W) [phone] (f) [phone] [email or web address] PROVIDERS: Make your selection(s) from the choices in EACH section by typing an "x" and enter comments in the comment section. Please use your independent medical judgment in providing your response. This request does not imply that any particular answer is desired or expected. CLINICAL INDICATORS: (Providers should not edit this section) Based on documentation of "history of CHF" and "Congestive heart failure is suspected. Do not think his x-rays show that". BNP=4, Echo showed EF of 55%. Pt. treated with IV Bumex in ER. Please provide further specificity regarding CHF. ACUITY: ( ) Acute ( ) Chronic ( ) Acute on Chronic ( ) Clinicallly unable to determine TYPE: ( ) Systolic ( ) Diastolic ( ) Combined Systolic/Diastolic ( ) Other, please specify: ( ) Clinically unable to determine ( ) The patient does NOT have CHF COMMENTS: Use of terms such as suspected, likely, or probable (associated with a specific diagnosis that is being evaluated, monitored, or treated as if it exists) are acceptable and can be restated in the discharge summary if not ruled out. MTDD
[2016-03-21] MEDS: FUROSEMIDE 40 MG TABLET PO SCH (10:10)
[2016-03-21] MEDS: DOCUSATE SODIUM 100 MG CAPSULE PO SCH ×2 (10:11→22:02)
[2016-03-21] MEDS: glipiZIDE 5 MG TABLET PO SCH (10:11)
[2016-03-21] MEDS: POTASSIUM GLUCONATE 500 MG TABLET PO SCH (10:13)
[2016-03-21] MEDS: MULTIVITAMIN (CENTRUM) TABLET PO SCH (10:13)
[2016-03-21] MEDS: PANTOPRAZOLE 40 MG TABLET PO SCH (10:13)
[2016-03-21] MEDS: VALSARTAN/HCTZ 160-12.5 MG TABLET PO SCH (10:14)
[2016-03-21] MEDS: sitaGLIPtin 100 MG TABLET PO SCH ×3 (10:14→17:07)
[2016-03-21] MEDS: FENOFIBRATE 145 MG TABLET PO SCH (10:14)
[2016-03-21] MEDS: TICAGRELOR 90 MG TABLET PO SCH ×2 (10:14→22:02)
[2016-03-21] MEDS: INSULIN LISPRO 100 UNIT/ML SUBCUT SCH ×5 (10:15→22:08)
[2016-03-21] MEDS: AZELASTINE NASAL 137 MCG/SPRAY 30 ML BOTTLE BOTH NARES SCH ×2 (10:17→22:03)
[2016-03-21] MEDS ORDERED: oxyCODONE/ACETAMINOPHEN 5-325 MG TABLET PO PRN (10:59)
--- NOTE | 2016-03-21 11:01 | Pulmonology Progress Note ---
Pulmonary - PN: Subj Interval history: This is a 61-year-old white male whom I saw in pulmonary consultation on 2016. This patient is usually followed by Dr. Shar Rooney and Dr. Aron che. I saw him yesterday for Dr. Esquivel who was out sick. My impressions were. 1. Congestive heart failure was suspected but this was not found. 2. Bibasilar increase in pulmonary markings greater on the right and the left. This had the appearance of an early pneumonia. White blood cell count was normal. Sputum's have not been reported. Blood cultures are negative. Cold agglutinins are negative. Legionella titers are pending. Today's chest x-ray shows marked improvement of the bibasilar infiltrates. I think this patient needs several more days of antibiotics. I told his I think that he could be ready by Thursday. 3. COPD 4. History of gastroesophageal reflux disease. Watch for microaspiration 5. Fyb-fofqjxv-svnoxnvhu diabetes mellitus 6. Obstructive sleep apnea. Chronic back pain. Peripheral artery disease with stents chronic anticoagulant cannulation. High blood pressure Today the patient complains of some shortness of breath he has some large airway congestion but I do not hear any wheezing. His other biggest complaint is that bed has a hole in the mattress and this aggravates his chronic back pain. He did not tell Dr. Rooney about this this morning. I have talked to the staff and asked him to either get him a better. Or to change rooms. Medicines have been reviewed. Labs been reviewed. Vital signs. See below Psychiatric. Oriented 3 Neck. Symmetrical. No meningismus. Lymphatics. No submandibular cervical supraclavicular or epitrochlear adenopathy. Chest. Mild large airway congestion with prolonged expiration and no wheezes Heart. No gallop Abdomen. Nontender. Bowel sounds are positive Extremities. Nothing to suggest deep venous thrombophlebitis. Plan. 1. Continue antibiotics little longer. 2. Should be ready for discharge by Thursday. 3. Different bed. See above. Exam (Progress Note) - Constitutional Vitals: Period Temp Pulse Resp BP Sys/Baldwin Pulse Ox Last 24 Hr 96.7 F-97.9 F 71-78 20-22 100-125/58-70 97-98 Results - Labs CBC & BMP: 03/20/16 02:28 03/20/16 02:28
[2016-03-21] MEDS: oxyCODONE/ACETAMINOPHEN 5-325 MG TABLET PO SCH ×2 (11:27→22:01)
[2016-03-21] MEDS: ATORVASTATIN 20 MG TABLET PO SCH (11:27)
[2016-03-21] MEDS: VASCEPA 2 GM PO SCH ×2 (11:29→22:03)
[2016-03-21] MEDS: FARXIGA 10 MG PO SCH (11:32)
[2016-03-21] MEDS: NON-FORMULARY MEDICATION (Icosapent Ethyl [Vascepa] 2 GM) PO SCH (14:53)
[2016-03-21] MEDS ORDERED: MORPHINE ER 15 MG TABLET PO SCH (15:00)
--- NOTE | 2016-03-21 16:55 | Family Practice Progress Note ---
Family Practice - PN: Subj Interval history: Patient was seen this morning. He did seem to be doing a little bit better but still complained of periodic shortness of breath. His CBC revealed a normal white count but there is questionable infiltrate in his lungs as noted per chest x-ray. Will defer to pulmonary as to need for hold or discharge. Patient does have a very high chance of decompensating fairly rapidly. Otherwise vital signs are fairly stable at this time. No acute distress otherwise Exam (Progress Note) - Constitutional Vitals: Period Temp Pulse Resp BP Sys/Baldwin Pulse Ox Last 24 Hr 97.0 F-98 F 71-80 18-20 106-140/58-74 94-98 Exam: Well-developed male he does have metabolic syndrome picture. HEENT pupils equal reactive to light. Ocular movements intact neck supple trachea midline Lungs a few basilar rails no rhonchi appreciated. Breathing some easier this morning Cardiovascular rate is regular no gallop or rub one out of 6 systolic ejection murmur Abdomen soft nondistended nontender admits normal bowel movements Extremities no clubbing cyanosis or edema Neurologically no lateralizing signs or focal neurologic deficit Results - Labs CBC & BMP: 03/20/16 02:28 03/20/16 02:28 Assessment and Plan (1) Dyspnea on exertion Status: Acute Assessment and plan: I'm admitting the patient we will continue his sleep BiPAP machine. We'll get pulmonary to see him. Some of this may have to do with the numerous pain medications requiring Current Visit: Yes (2) Acute dyspnea Status: Acute Current Visit: Yes (3) CAD (coronary artery disease) Status: Chronic Assessment and plan: With his strong history in that he get cardiology consultation do appreciate their assistance in this considering he may have congestive heart failure Current Visit: Yes (4) Type 2 diabetes mellitus Status: Chronic Assessment and plan: We'll monitor closely his blood sugars and adjust accordingly Current Visit: Yes (5) Chronic low back pain Status: Chronic Current Visit: No (6) Metabolic syndrome Status: Chronic Current Visit: No (7) Peripheral vascular disease due to secondary diabetes Status: Chronic Current Visit: No
--- NOTE | 2016-03-21 17:11 | Cardiology Progress Note ---
Joaquin Clemente Vanessa, RN, am scribing for, and in the presence of, Matthew Al MD 17:10. Assessment and Plan - Time spent with patient Time spent with patient: Less than 30 minutes (1) Dyspnea on exertion Status: Acute Assessment and plan: Echocardiogram on 03/20 with no significant findings to contribute to his shortness of breath. Chest x-ray yesterday was questionable for pulmonary edema. Other clinical findings and physical exam do not reflective heart failure. Continue furosemide. He can follow up with Dr. Mcgee in 1-2 weeks after discharge. He is been treated by Dr. Yan with antibiotics. Current Visit: Yes (2) Chest tightness or pressure Status: Acute Assessment and plan: No acute cardiac findings to contribute to this. He now only experiences chest wall discomfort with severe cough. Current Visit: Yes (3) CAD (coronary artery disease) Status: Chronic Assessment and plan: Appears to be clinically stable at this time. Current Visit: Yes (4) Hypertension Status: Chronic Assessment and plan: Blood pressures appear to be well controlled. Continue current medication regimen. Current Visit: Yes (5) Type 2 diabetes mellitus Status: Chronic Assessment and plan: Glucose fairly well controlled. Defer management to attending physician. Current Visit: Yes (6) Obstructive sleep apnea on CPAP Status: Chronic Assessment and plan: He is compliant with use of CPAP. Reinforced importance of usage. Current Visit: No (7) Peripheral vascular disease due to secondary diabetes Status: Chronic Assessment and plan: He is s/p angioplasty of right common femoral artery and stenting of right proximal superficial femoral artery in June 2015. Pletal has been continued. Current Visit: No (8) Hyperlipidemia Status: Chronic Assessment and plan: Continue lipid lowering agent. Current Visit: No (9) Chronic low back pain Status: Chronic Assessment and plan: Pain medications have been resumed. He is managed for his pain by Dr. Avalos. Current Visit: No Cardiology - PN: Subj Interval history: Awake and alert, resting quietly in bed this morning without acute distress noted. No acute findings or changes in patient's hemodynamic status overnight. He is not using oxygen. Reports he still slightly short of breath time to time, but no acute changes, and he only has chest pressure/discomfort with severe cough. Echocardiogram obtained 03/20/16 revealed an LV ejectio fraction of 55% with mildly dilated LA. RV and RA both normal size and function, no significant valvular disease. Blood pressure stable, averaging 115/65, heart rate 70's and regular. No arrhythmia observed by software development project manager. From cardiac standpoint, he ok for discharge home. He is now being treated for pneumonia and will require a few more days of admission for antibiotics and be discharged possibly on Thursday. He is been moved to another room secondary to circulation issues. He is not having any cardiac symptoms. Exam (Progress Note) - Constitutional Vitals: Period Temp Pulse Resp BP Sys/Baldwin Pulse Ox Last 24 Hr 96.7 F-97.9 F 71-78 20-22 100-125/58-70 97-98 Exam: General: Present: No Apparent Distress, obese HEENT: Present: PERRL, Mucus Membranes Moist. Absent: Jaundice, Pallor Neck: Present: Supple Neck, Midline Trachea. Absent: No JVD/HJR, No Masses, No Bruit Cardiac: Present: Reg Rate and Rhythm. Absent: No Murmur, Tachycardia, Bradycardia Lungs: Present: Clear Ascult./Percussion, No Wheeze, Rales, Rhonchi. Absent: Oxygen Neuro: Present: Grossly Intact. Absent: Numbness, Tingling, Weakness, Resting Tremor Abdomen: Present: Soft, Active Bowel Sounds. Absent: Ascites, Tender, Firm. Obese Skin: Present: Other (discolored lower legs and toes, related to peripheral disease). Absent: Rash Musculoskeletal: Absent: No Fluid Collection, Normal Range of Motion Extremities: Present: No Clubbing, No Cyanosis, No Edema, Normal Upper Extr. Pulses (2+), Normal Lower Extr. Pulses (2+ posterior tibial, 1+ dorsalis pedis) , Capillary Refill (normal). Absent: Cold, Mottled Result/EKG - Labs CBC & BMP: 03/20/16 02:28 03/20/16 02:28 Lab Results: I have reviewed the past 24 hour labs Labs: Laboratory Results - last 24 hr 03/20/16 03/20/16 03/20/16 10:59 11:32 16:08 POC Glucose 201 H 127 H Cold Agglutinin Screen 1:4 03/20/16 03/21/16 19:03 08:30 POC Glucose 129 H 159 H Cold Agglutinin Screen - Impressions Impressions: Normal sinus rhythm on telemetry. - Diagnostic Findings Procedure: Chest x-ray: report reviewed by me, image reviewed by me - EKG EKG results: interpreted by me, no acute changes EKG shows: sinus rhythm I, Matthew Al MD, personally performed the services described in this documentation, ascribed by Shanae Nuñez RN in my presence, and it is both accurate and complete 711 .
[2016-03-21] MEDS: AZITHROMYCIN INJ 500 MG in SODIUM CHLORIDE 0.9% 250 ML IV SCH (17:50)
[2016-03-21] MEDS: BACLOFEN 10 MG TABLET PO SCH (22:02)
[2016-03-21] MEDS: ASPIRIN EC 81 MG TABLET PO SCH (22:02)
[2016-03-21] MEDS: MAGNESIUM CHLORIDE 64 MG TABLET PO SCH (22:02)
[2016-03-21] MEDS: MORPHINE ER 30 MG TABLET PO SCH (22:02)
[2016-03-22 02:36] LABS: Basophils # 0.1 10*3/uL (0.0-0.2); Eosinophils # 0.2 10*3/uL (0.0-0.87); Eosinophils % 3.7 % (0.00-10.9); Hematocrit 40.4 VOL% (42.0-52.0); Hemoglobin 13.5 GM/DL (14.0-18.0); Immature Granulocytes % 0.6 %; Immature Granulocytes Absolute 0.03 #; Lymphocytes # 1.8 10*3/uL (1.4-4.0); Lymphocytes % 37.1 % (21.2-54.2); Mean Corpuscular HGB Conc 33.4 GM/DL (32-36); Mean Corpuscular Hemoglobin 29 PG (27-34); Mean Corpuscular Volume 86.3 FL (87-102); Mean Platelet Volume 9.6 FL (9.6-12.0); Monocytes # 0.6 10*3/uL (0.11-0.8); Monocytes % 12.4 % (1.7-12.7); Neutrophils # 2.2 10*3/uL (1.4-7.4); Neutrophils % 45.2 % (38.7-73.9); Platelet Count 293 T/CUMM (130-400); Red Blood Count 4.68 MC/CUMM (3.8-5.5); Red Cell Distribution Width 13.5 % (9.3-17.3); White Blood Count 4.9 T/CUMM (4-12)
[2016-03-22 02:53] LABS: Calcium 9.1 MG/DL (8.5-10.1); Magnesium 2.4 MG/DL (1.8-2.4); Osmolality,Calculated 291.7 MOS/KG (273-304)
[2016-03-22] MEDS: INSULIN LISPRO 100 UNIT/ML SUBCUT SCH ×4 (08:08→20:36)
[2016-03-22] MEDS: FENOFIBRATE 145 MG TABLET PO SCH (08:34)
[2016-03-22] MEDS: AZELASTINE NASAL 137 MCG/SPRAY 30 ML BOTTLE BOTH NARES SCH ×2 (08:34→20:29)
[2016-03-22] MEDS: DOCUSATE SODIUM 100 MG CAPSULE PO SCH ×2 (08:34→20:29)
[2016-03-22] MEDS: MULTIVITAMIN (CENTRUM) TABLET PO SCH (08:34)
[2016-03-22] MEDS: POTASSIUM GLUCONATE 500 MG TABLET PO SCH (08:34)
[2016-03-22] MEDS: glipiZIDE 5 MG TABLET PO SCH (08:35)
[2016-03-22] MEDS: VALSARTAN/HCTZ 160-12.5 MG TABLET PO SCH (08:35)
[2016-03-22] MEDS: FUROSEMIDE 40 MG TABLET PO SCH (08:36)
[2016-03-22] MEDS: PANTOPRAZOLE 40 MG TABLET PO SCH (08:36)
[2016-03-22] MEDS: ATORVASTATIN 20 MG TABLET PO SCH (08:36)
[2016-03-22] MEDS: oxyCODONE/ACETAMINOPHEN 5-325 MG TABLET PO SCH ×2 (08:36→20:29)
[2016-03-22] MEDS: MORPHINE ER 30 MG TABLET PO SCH ×3 (08:36→20:28)
[2016-03-22] MEDS: TICAGRELOR 90 MG TABLET PO SCH ×2 (08:36→20:29)
[2016-03-22] MEDS: FARXIGA 10 MG PO SCH (08:37)
[2016-03-22] MEDS: VASCEPA 2 GM PO SCH ×2 (08:37→20:29)
[2016-03-22] MEDS: cefTRIAXone 1,000 MG in SODIUM CHLORIDE 0.9% 100 ML IV SCH (08:45)
--- NOTE | 2016-03-22 10:01 | Family Practice Progress Note ---
Family Practice - PN: Subj Interval history: Patient was seen this morning. He was asleep with his BiPAP in place. I did not wake him up at 630 this morning. The nurses states that he was has been doing well through the night. His vital signs are completely stable his weight is unchanged. His CBC and BMP are normal except for slight elevation of his glucose. Pulmonary wants him to stay until this Thursday and given antibiotics. At that time we will reevaluate. Appreciate pulmonary specialty involvement Exam (Progress Note) - Constitutional Vitals: Period Temp Pulse Resp BP Sys/Baldwin Pulse Ox Last 24 Hr 96.8 F-98 F 69-80 16-20 111-135/58-77 94-98 Exam: Exam generally unchanged. We didn't do a full exam this morning due to the fact that he was sound asleep but he has had a good night her nurses Results - Labs CBC & BMP: 03/22/16 01:23 03/22/16 01:23 Assessment and Plan (1) Dyspnea on exertion Status: Acute Assessment and plan: I'm admitting the patient we will continue his sleep BiPAP machine. We'll get pulmonary to see him. Some of this may have to do with the numerous pain medications requiring 03/22/16: No is no dyspnea as apparent on his BiPAP at this time Current Visit: Yes (2) Acute dyspnea Status: Acute Current Visit: Yes (3) CAD (coronary artery disease) Status: Chronic Assessment and plan: With his strong history in that he get cardiology consultation do appreciate their assistance in this considering he may have congestive heart failure 03/22/2016: Patient is stable Current Visit: Yes (4) Type 2 diabetes mellitus Status: Chronic Assessment and plan: We'll monitor closely his blood sugars and adjust accordingly Current Visit: Yes (5) Chronic low back pain Status: Chronic Current Visit: No (6) Metabolic syndrome Status: Chronic Current Visit: No (7) Peripheral vascular disease due to secondary diabetes Status: Chronic Current Visit: No
--- NOTE | 2016-03-22 10:34 | Pulmonology Progress Note ---
Pulmonary - PN: Subj Interval history: Patient seen and examined with at bedside. He reports that he is doing better. Still has some episodes of shortness of breath, but these resolve quickly with rest. Breathing easier, not having signficant productive cough. Still having some sweats, but overall is improved Exam (Progress Note) - Constitutional Vitals: Period Temp Pulse Resp BP Sys/Baldwin Pulse Ox Last 24 Hr 96.8 F-98 F 69-80 16-20 111-135/58-77 94-98 General appearance: no acute distress - Head Head exam: Present: normal inspection - Respiratory Respiratory exam: Present: clear to auscultation bilaterally. Absent: wheezes - Cardiovascular Cardiovascular exam: Present: regular rate and rhythm - GI/Abdominal GI/Abdominal exam: Present: normal bowel sounds, soft Results - Labs CBC & BMP: 03/22/16 01:23 03/22/16 01:23 Lab Results: I have reviewed the past 24 hour labs Assessment and Plan (1) Acute dyspnea Status: Acute Assessment and plan: Patient being treated for pneumonia. Clinically appears to be doing well. Continue with current meds. Can likely go Thursday Current Visit: Yes
[2016-03-22] MEDS: sitaGLIPtin 100 MG TABLET PO SCH (17:19)
[2016-03-22] MEDS: MAGNESIUM CHLORIDE 64 MG TABLET PO SCH (20:28)
[2016-03-22] MEDS: ASPIRIN EC 81 MG TABLET PO SCH (20:28)
[2016-03-22] MEDS: BACLOFEN 10 MG TABLET PO SCH (20:28)
[2016-03-22] MEDS: AZITHROMYCIN INJ 500 MG in SODIUM CHLORIDE 0.9% 250 ML IV SCH (20:31)
--- NOTE | 2016-03-23 08:36 | Family Practice Progress Note ---
Family Practice - PN: Subj Interval history: Patient seen this morning. He is stable. Was on his BiPAP machine and tolerating it well was asleep at arouses easily. We still have him own antibiotics at present. He seemed to be breathing much easier and states that he's "finally gotten back to his normal breathing". No acute distress otherwise Exam (Progress Note) - Constitutional Vitals: Period Temp Pulse Resp BP Sys/Baldwin Pulse Ox Last 24 Hr 96.1 F-98.6 F 64-73 16-18 107-127/59-75 94-99 Exam: Exam generally unchanged. We didn't do a full exam this morning due to the fact that he was sound asleep. Arouses easily and is alert and oriented very cognitive. HEENT negative. His BiPAP machine was in place, neck supple trachea midline CV no gallop or rub Lungs clear anteriorly Abdomen soft nondistended Results - Labs CBC & BMP: 03/22/16 01:23 03/22/16 01:23 Assessment and Plan (1) Dyspnea on exertion Status: Acute Assessment and plan: I'm admitting the patient we will continue his sleep BiPAP machine. We'll get pulmonary to see him. Some of this may have to do with the numerous pain medications requiring 03/22/16: No is no dyspnea as apparent on his BiPAP at this time 03/23/16 not having any dyspnea present on BiPAP machine. Lungs seem significantly clearer. We will continue to follow along with pulmonary. Current Visit: Yes (2) Acute dyspnea Status: Acute Current Visit: Yes (3) CAD (coronary artery disease) Status: Chronic Assessment and plan: With his strong history in that he get cardiology consultation do appreciate their assistance in this considering he may have congestive heart failure 03/22/2016: Patient is stable Current Visit: Yes (4) Type 2 diabetes mellitus Status: Chronic Assessment and plan: We'll monitor closely his blood sugars and adjust accordingly Current Visit: Yes (5) Chronic low back pain Status: Chronic Current Visit: No (6) Metabolic syndrome Status: Chronic Current Visit: No (7) Peripheral vascular disease due to secondary diabetes Status: Chronic Current Visit: No
[2016-03-23] MEDS: cefTRIAXone 1,000 MG in SODIUM CHLORIDE 0.9% 100 ML IV SCH (08:57)
[2016-03-23] MEDS: oxyCODONE/ACETAMINOPHEN 5-325 MG TABLET PO SCH ×2 (09:02→21:11)
[2016-03-23] MEDS: POTASSIUM GLUCONATE 500 MG TABLET PO SCH (09:03)
[2016-03-23] MEDS: DOCUSATE SODIUM 100 MG CAPSULE PO SCH ×2 (09:04→21:11)
[2016-03-23] MEDS: FUROSEMIDE 40 MG TABLET PO SCH (09:04)
[2016-03-23] MEDS: glipiZIDE 5 MG TABLET PO SCH (09:04)
[2016-03-23] MEDS: VALSARTAN/HCTZ 160-12.5 MG TABLET PO SCH (09:04)
[2016-03-23] MEDS: TICAGRELOR 90 MG TABLET PO SCH ×2 (09:04→21:11)
[2016-03-23] MEDS: PANTOPRAZOLE 40 MG TABLET PO SCH (09:04)
[2016-03-23] MEDS: MULTIVITAMIN (CENTRUM) TABLET PO SCH (09:04)
[2016-03-23] MEDS: MORPHINE ER 30 MG TABLET PO SCH ×3 (09:04→21:11)
[2016-03-23] MEDS: ATORVASTATIN 20 MG TABLET PO SCH (09:04)
[2016-03-23] MEDS: FENOFIBRATE 145 MG TABLET PO SCH (09:04)
[2016-03-23] MEDS: FARXIGA 10 MG PO SCH (09:05)
[2016-03-23] MEDS: VASCEPA 2 GM PO SCH ×2 (09:05→21:12)
[2016-03-23] MEDS: AZELASTINE NASAL 137 MCG/SPRAY 30 ML BOTTLE BOTH NARES SCH ×2 (09:06→21:12)
[2016-03-23] MEDS: INSULIN LISPRO 100 UNIT/ML SUBCUT SCH ×4 (09:08→22:59)
[2016-03-23] MEDS: sitaGLIPtin 100 MG TABLET PO SCH (16:58)
[2016-03-23] MEDS: ASPIRIN EC 81 MG TABLET PO SCH (21:11)
[2016-03-23] MEDS: BACLOFEN 10 MG TABLET PO SCH (21:11)
[2016-03-23] MEDS: MAGNESIUM CHLORIDE 64 MG TABLET PO SCH (21:11)
[2016-03-23] MEDS: AZITHROMYCIN INJ 500 MG in SODIUM CHLORIDE 0.9% 250 ML IV SCH (21:58)
[2016-03-24 05:29] LABS: Basophils # 0.1 10*3/uL (0.0-0.2); Basophils % 1.1 % (0.0-0.8); Eosinophils # 0.2 10*3/uL (0.0-0.87); Hematocrit 39.2 VOL% (42.0-52.0); Immature Granulocytes % 0.5 %; Immature Granulocytes Absolute 0.03 #; Lymphocytes # 2.2 10*3/uL (1.4-4.0); Lymphocytes % 38.8 % (21.2-54.2); Mean Corpuscular HGB Conc 33.2 GM/DL (32-36); Mean Corpuscular Hemoglobin 29 PG (27-34); Mean Corpuscular Volume 86.2 FL (87-102); Mean Platelet Volume 9.5 FL (9.6-12.0); Monocytes # 0.5 10*3/uL (0.11-0.8); Monocytes % 9.7 % (1.7-12.7); Neutrophils # 2.5 10*3/uL (1.4-7.4); Neutrophils % 45.9 % (38.7-73.9); Platelet Count 253 T/CUMM (130-400); Red Blood Count 4.55 MC/CUMM (3.8-5.5); Red Cell Distribution Width 13.3 % (9.3-17.3); White Blood Count 5.5 T/CUMM (4-12)
[2016-03-24 05:59] LABS: Calcium 8.6 MG/DL (8.5-10.1); Magnesium 2.3 MG/DL (1.8-2.4); Potassium 3.8 MMOL/L (3.5-5.1)
--- NOTE | 2016-03-24 08:05 | Physician Query Form ---
CLICK EDIT DOCUMENT TO SELECT QUERY ANSWER --> OK --> SIGN Otilia Sterling RN Clinical Project Lead W) [phone] (f) [phone] [email or web address] PROVIDERS: Make your selection(s) from the choices in EACH section by typing an "x" and enter comments in the comment section. Please use your independent medical judgment in providing your response. This request does not imply that any particular answer is desired or expected. CLINICAL INDICATORS: (Providers should not edit this section) Based on documentation of "history of CHF" and "Congestive heart failure is suspected. Do not think his x-rays show that". BNP=4, Echo showed EF of 55%. Pt. treated with IV Bumex in ER. Please provide further specificity regarding CHF. ACUITY: ( ) Acute ( ) Chronic ( ) Acute on Chronic ( ) Clinicallly unable to determine TYPE: ( ) Systolic ( ) Diastolic ( ) Combined Systolic/Diastolic ( ) Other, please specify: ( ) Clinically unable to determine ( ) The patient does NOT have CHF COMMENTS: This patientdid not have CHF. Use of terms such as suspected, likely, or probable (associated with a specific diagnosis that is being evaluated, monitored, or treated as if it exists) are acceptable and can be restated in the discharge summary if not ruled out. MTDD
[2016-03-24] MEDS: MULTIVITAMIN (CENTRUM) TABLET PO SCH (08:31)
[2016-03-24] MEDS: VALSARTAN/HCTZ 160-12.5 MG TABLET PO SCH (08:31)
[2016-03-24] MEDS: TICAGRELOR 90 MG TABLET PO SCH (08:31)
[2016-03-24] MEDS: DOCUSATE SODIUM 100 MG CAPSULE PO SCH (08:31)
[2016-03-24] MEDS: FUROSEMIDE 40 MG TABLET PO SCH (08:31)
[2016-03-24] MEDS: glipiZIDE 5 MG TABLET PO SCH (08:31)
[2016-03-24] MEDS: MORPHINE ER 30 MG TABLET PO SCH ×2 (08:32→14:46)
[2016-03-24] MEDS: oxyCODONE/ACETAMINOPHEN 5-325 MG TABLET PO SCH (08:32)
[2016-03-24] MEDS: PANTOPRAZOLE 40 MG TABLET PO SCH (08:33)
[2016-03-24] MEDS: POTASSIUM GLUCONATE 500 MG TABLET PO SCH (08:33)
[2016-03-24] MEDS: FENOFIBRATE 145 MG TABLET PO SCH (08:33)
[2016-03-24] MEDS: FARXIGA 10 MG PO SCH (08:33)
[2016-03-24] MEDS: VASCEPA 2 GM PO SCH (08:33)
[2016-03-24] MEDS: AZELASTINE NASAL 137 MCG/SPRAY 30 ML BOTTLE BOTH NARES SCH (08:35)
[2016-03-24] MEDS: ATORVASTATIN 20 MG TABLET PO SCH (08:38)
[2016-03-24] MEDS: cefTRIAXone 1,000 MG in SODIUM CHLORIDE 0.9% 100 ML IV SCH (08:39)
[2016-03-24] MEDS: INSULIN LISPRO 100 UNIT/ML SUBCUT SCH ×2 (08:44→12:38)
--- NOTE | 2016-03-24 09:25 | XRay Report ---
XR chest 2V Indication: Shortness of breath. Chest 2 views: Comparison 21 March 2016. Heart size and mediastinal contours remain normal. There is continued airways disease with perihilar bronchial thickening, but no new infiltrates. Overall, interstitial prominence of the lungs has decreased slightly. Pleural spaces remain clear. DISH thoracic spine is stable. Impression: Improved but persistent mild airways disease. No new infiltrates. PROCEDURE INTERPRETED AT [facility] DEPARTMENT OF RADIOLOGY Final Report Signed by: Matthew Mccray M.D.
--- NOTE | 2016-03-24 10:38 | Pulmonology Progress Note ---
Pulmonary - PN: Subj Interval history: This is a 61-year-old white male whom I saw in pulmonary consultation on 2016. This patient is usually followed by Dr. Shar Rooney and Dr. Aron che. I saw him yesterday for Dr. Esquivel who was out sick. My impressions were. 1. Congestive heart failure was suspected but this was not found. 2. Bibasilar increase in pulmonary markings greater on the right and the left. This had the appearance of an early pneumonia. White blood cell count was normal. Sputum's have not been reported. Blood cultures are negative. Cold agglutinins are negative. Legionella titers are pending. Today's chest x-ray shows marked improvement of the bibasilar infiltrates. I think this patient needs several more days of antibiotics. I told his I think that he could be ready by Thursday. 3. COPD 4. History of gastroesophageal reflux disease. Watch for microaspiration 5. Bfb-knrnyxf-sftrawswg diabetes mellitus 6. Obstructive sleep apnea. Chronic back pain. Peripheral artery disease with stents chronic anticoagulant cannulation. High blood pressure Today the patient complains of some shortness of breath he has some large airway congestion but I do not hear any wheezing. His other biggest complaint is that bed has a hole in the mattress and this aggravates his chronic back pain. He did not tell Dr. Rooney about this this morning. I have talked to the staff and asked him to either get him a better. Or to change rooms. 03/24/2016. Today's chest x-ray shows complete resolution of the patient's right lower lung and left lower lung infiltrates . There are no positive cultures. Sputum Gram stain did show many gram-positive cocci. There were also a few gram-negative rods seen. There were greater than 25 white blood cells per low power field. Patient has responded well to Rocephin and Zithromax. He could probably be treated with Ceftin 500 p.o. twice daily when he is discharged from the hospital. On my exam today he is wheeze free with prolonged expiration. Both the patient end of his tell me that he feels like he is ready to go home. I agree. Change of bed on 03/21/2016 worked well Medicines have been reviewed. Labs been reviewed. Vital signs. See below Psychiatric. Oriented 3 Neck. Symmetrical. No meningismus. Lymphatics. No submandibular cervical supraclavicular or epitrochlear adenopathy. Chest. Mild prolonged expiration and no wheezes Heart. No gallop Abdomen. Nontender. Bowel sounds are positive Extremities. Nothing to suggest deep venous thrombophlebitis. Plan. 1. Continue antibiotics little longer. 2. Should be ready for discharge by Thursday. 3. Different bed. See above. 4. 03/24/2016 patient looks good from my standpoint. Chest x-ray has cleared. He is anxious to go home. Ceftin 500 twice daily for another 7 days would probably work well. Exam (Progress Note) - Constitutional Vitals: Period Temp Pulse Resp BP Sys/Baldwin Pulse Ox Last 24 Hr 96.5 F-98.4 F 62-69 16-20 109-120/56-78 90-98 Results - Labs CBC & BMP: 03/24/16 04:38 03/24/16 04:38
[2016-03-24 12:31] VITALS: BP 103/52
--- NOTE | 2016-03-24 14:49 | Discharge Summary ---
Hospital Course - Hospital Course Hospital Course: 61-year-old male came in the hospital with some shortness of breath, bibasilar pulmonary congestion, COPD, with a history of [id number] diabetes and known history of obstructive sleep apnea. Patient has complex comorbidities and the history of coronary disease as well as generalized metabolic syndrome. He is very inactive. Moderately obese. Nonetheless he did have some evidence of bronchitis/bronchial pneumonia and I did get pulmonary to see him. He was having significant coughing and we did turn him around from this but it took the course of several days to get him back to baseline. Patient has extremely numerous medicines that were required to be given during hospitalization to follow resolved his issues. We did give him on multiple antibiotics as noted in the chart and requires breathing treatments as well as diuretics and medications for blood pressure. Nonetheless he finally stabilized please see the chart for daily progress. Diagnosis - Discharge Diagnosis (1) Dyspnea on exertion Status: Acute (2) Acute dyspnea Status: Acute (3) CAD (coronary artery disease) Status: Chronic (4) Type 2 diabetes mellitus Status: Chronic (5) Chronic low back pain Status: Chronic (6) Metabolic syndrome Status: Chronic (7) Peripheral vascular disease due to secondary diabetes Status: Chronic Specialty Discharge - Follow Up or Referrals Follow up with: Chase Esquivel MD [Physician] - 2 Weeks ( @ 2:00pm) Vinicio Rooney DO [Physician] - 1 Month (April 17 @1:15 ) Discharge Plan - Discharge Data Disposition: Disch To Home/Self Care Condition at Discharge: Stable Discharge Diet: advance to your usual diet, diabetic diet Activity: resume usual activities as tolerated, increase activity as tolerated Hygiene: no restrictions Weight Bearing at Discharge: full weight bearing Driving: no restrictions Contact your physician if you experience:: fever over 101, Shortness of breath - Discharge Medications New Dapagliflozin Propanediol [Farxiga] 10 mg PO DAILY Cefuroxime Tab [Ceftin] 500 mg PO BID #10 tablet Morphine ER Tab [Ms Contin] 30 mg PO TID tablet Ticagrelor [Brilinta] 90 mg PO BID tablet Continue Furosemide Tab [Lasix Tab] 40 mg PO DAILY Atorvastatin [Lipitor] 20 mg PO DAILY Omeprazole 20 mg PO DAILY Fenofibric Acid 135 mg PO DAILY Vitamin E 400 unit PO DAILY Saxagliptin HCl/Metformin HCl [Kombiglyze Xr 5-1,000 mg Tab] 5 mg PO DAILY W/ SUPPER Magnesium Chloride [Mag Delay] 64 mg PO BEDTIME Potassium Gluconate 595 mg PO DAILY Valsartan/Hctz 160-12.5 [Diovan Hct 160-12.5] 1 tablet PO DAILY Multivit-Min/FA/Lycopene/Lut [Centrum Silver Tablet] 1 each PO DAILY Niacin [Niacin ER] 2,000 mg PO BEDTIME glipiZIDE [Glipizide] 5 mg PO DAILY Cilostazol [Pletal] 100 mg PO BID Aspirin [Ecotrin] 81 mg PO BEDTIME Azelastine Nasal 137 Mcg/[place] [Astelin Nasal [place]] 1 spray BOTH NARES BID Icosapent Ethyl [Vascepa] 2 gm PO BID Baclofen 10 mg PO BEDTIME PRN PRN Reason: Spasms Metoprolol Succinate Xl [Toprol Xl] 50 mg PO BEDTIME Oxycodone HCl/Acetaminophen [Percocet 10-325 mg Tablet] 1 each PO BID Oxycodone HCl/Acetaminophen [Percocet 10-325 mg Tablet] 1 each PO DAILY@1500 PRN PRN Reason: Pain Docusate Sodium Cap [Colace Cap] 100 mg PO BEDTIME PRN PRN Reason: Constipation Metformin HCl 500 mg PO DAILY Morphine ER Tab [Ms Contin] 30 mg PO TID Dapagliflozin Propanediol [Farxiga] 10 mg PO DAILY Ticagrelor [Brilinta] 90 mg PO BID Gabapentin 600 mg PO BEDTIME - Follow Up or Referral Follow Up: Chase Esquivel MD [Physician] - 2 Weeks ( @ 2:00pm) Vinicio Rooney DO [Physician] - 1 Month (April 17 @1:15 ) - Forms/Instructions Instructions: Dyspnea (GEN) Exam - Constitutional Vitals: Period Temp Pulse Resp BP Sys/Baldwin Pulse Ox Last 24 Hr 96.5 F-97.1 F 63-69 16-20 103-120/52-78 90-98 Discharge Results Procedures and tests throughout hospitalization: Pending Orders 03/20/16 11:32 Legionella Pneumophilia Ab Routine 03/22/16 11:00 Sputum Culture and Gram Stain Routine Labs on day of discharge: Labs from last 24 hours 03/24/16 03/24/16 03/24/16 11:32 08:08 04:38 WBC RBC Hgb Hct MCV MCH MCHC RDW Plt Count MPV Neut % (Auto) Lymph % (Auto) Logan % (Auto) Eos % (Auto) Baso % (Auto) Neut # (Auto) Lymph # (Auto) Logan # (Auto) Eos # (Auto) Baso # (Auto) Immature Gran % Nucleated RBC % Immature Gran # Nucleated RBCs # Sodium 143 Potassium 3.8 Chloride 103 Carbon Dioxide 26 Anion Gap 17.8 H BUN 18 Creatinine 1.10 GFR Calculation 94 BUN/Creatinine Ratio 16.00 Glucose 159 H POC Glucose 189 H 130 H Calculated Osmolality 289.0 Calcium 8.6 Magnesium 2.3 03/24/16 03/23/16 03/23/16 04:38 19:49 15:35 WBC 5.5 RBC 4.55 Hgb 13.0 L Hct 39.2 L MCV 86.2 L MCH 29 MCHC 33.2 RDW 13.3 Plt Count 253 MPV 9.5 L Neut % (Auto) 45.9 Lymph % (Auto) 38.8 Logan % (Auto) 9.7 Eos % (Auto) 4.0 Baso % (Auto) 1.1 H Neut # (Auto) 2.5 Lymph # (Auto) 2.2 Logan # (Auto) 0.5 Eos # (Auto) 0.2 Baso # (Auto) 0.1 Immature Gran % 0.5 Nucleated RBC % 0.0 Immature Gran # 0.03 Nucleated RBCs # 0.00 Sodium Potassium Chloride Carbon Dioxide Anion Gap BUN Creatinine GFR Calculation BUN/Creatinine Ratio Glucose POC Glucose 142 H 106 Calculated Osmolality Calcium Magnesium Preliminary micro results at discharge 03/22/16 11:00 Sputum Culture - Preliminary Sputum No Growth at 24 hours. 03/20/16 06:25 Blood Culture - Preliminary Blood No growth at 3 days 03/20/16 06:25 Blood Culture - Preliminary Blood No growth at 3 days DS: Provider Date of admission: 03/20/16 04:22 Primary care physician: . No PCP Attending physician on admission: Vinicoi Rooney DO Consults: 03/20/16 05:47 Consult to Pharmacy [CONS] Routine Reason for Pharmacy Consult: Adjust Meds Renal Funct 03/20/16 07:17 Consult to Physician [CONS] Routine Comment: Consulting Provider: 03/20/16 07:18 Consult to Physician [CONS] Routine Comment: dyspnea Consulting Provider: Chase Esquivel 03/20/16 07:19 Consult to Physician [CONS] Routine Comment: cp Consulting Provider: Cardiology - [facility] Person Notified: Date Notified: 03/20/16 Time Notified: 07:49 03/21/16 14:14 Consult to Pharmacy [CONS] Routine Reason for Pharmacy Consult: Other Comment: Update home medications Discharging clinician: Vinicio Rooney DO
== END 2016-03-24 16:25 | disposition home or self-care (01) | DRG 195 ==
LOC: N.ED 01:54 → N.EDINP 04:22 → N.2E 05:41 → N.TELES 03-21 14:39
PROVIDERS: ADMIT Family Medicine; ATTEND Family Medicine